=== PATIENT | female | born 1980 | race Caucasian/White ===

== ENCOUNTER 2019-04-17 10:57 | Emergency (ER) | payer BC ==
[2019-04-17 11:56] LABS: #Eosinphils 0.1 thou/uL (0.0-0.7); #Lymphocytes 1.9 thou/uL (1.20-3.40); #Monocytes 0.4 thou/uL (0.11-0.59); #Neutrophils 3.6 thou/uL (1.40-6.50); %Basophils 0.6 % (0.0-1.0); %Eosinophils 1.3 % (0.0-10.0); %Lymphocytes 30.9 % (21.0-51.0); %Monocytes 6.8 % (0.0-10.0); %Neutrophils 60.3 % (42.0-75.0); Hemoglobin 8.9 g/dL (12.0-16.0); Mean Corpuscular HGB CONC 31.9 g/dL (32.0-36.0); Mean Corpuscular Hemoglobin 28.9 pg (27.0-31.0); Mean Corpuscular Volume 90.5 fL (78.0-98.0); Mean Platelet Volume 8.2 fL (7.4-10.4); Platelet Count 277 thou/uL (130-400); RBC Distribution Width 11.7 % (11.5-14.5); Red Blood Cell (RBC) Count 3.07 mill/uL (4.20-5.40)
[2019-04-17 12:02] LABS: BHCG - Serum Negative (NEGATIVE); Pregs Control Background? CLEAR/WHITE (CLR/WHITE); Pregs Control Bar Appear? YES (CONTROL BAR)
[2019-04-17 12:14] LABS: Bilirubin Negative (Negative); Blood, Urine Negative (Negative); Clarity Clear (Clear); Glucose, Urine (Dipstick) Normal (Negative); Leukocyte Negative Leu/uL (Negative); Nitrite Negative (Negative); Protein, Urine (Dipstick) Negative (Neg-Trace); Urobilinogen Normal mg/dL (Less than 2)
[2019-04-17 12:16] LABS: ALT (SGPT) 17 U/L (8-55); AST (SGOT) 16 U/L (5-34); Alkaline Phosphatase 55 U/L (40-110); Anion Gap 10 mmol/L (10-20); BUN (Urea Nitrogen) 12 mg/dL (7.0-18.7); Bilirubin, Total 0.2 mg/dL (0.2-1.2); Calc. Creatinine Clearance 0 mL/min (70-130); Calcium 8.5 mg/dL (7.8-10.44); Carbon Dioxide 24 mmol/L (22-29); Chloride 106 mmol/L (98-107); Estimated GFR-MDRD 81; Globulin 3.3 g/dL (2.4-3.5); Glucose 89 mg/dL (70-105); Potassium 3.9 mmol/L (3.5-5.1); Protein, Total 7.3 g/dL (6.0-8.3); Sodium 136 mmol/L (136-145)
--- NOTE | 2019-04-17 12:40 | ULT ---
US Pelvic Transvag W Doppler HISTORY: Vaginal bleeding since 03/04/2019 COMPARISON: None. FINDINGS: The uterus measures 9.4 x 5.9 x 6.8 cm. There are 2 masses in the uterus consistent with fibroids kelley suring 3.2 and 1.2 cm respectively. The endometrium measures 5 mm in thickness. No endometrial fluid is seen. The right ovary measures 4.7 x 3.3 x 4.2 cm in the left ovary measures 3.3 x 1.8 x 2.6 cm. Flow is de monstrated to both ovaries. There is a 4.2 x 4.7 x 4.1 cm cystic mass arising from the right ovary. There is a small amount of free fluid in the cul-de-sac. Nabothian cysts are noted in the cervix. IMPRESSION: 1. Uterine fibroids 2. Right ovarian cyst measuring 4.2 x 4.7 x 4.1 cm. RECOMMENDATION: Follow-up exam is recommended in 8-10 weeks.
== END 2019-04-17 13:30 | disposition home or self-care (01) ==
LOC: ERS 10:57
DX: N93.8 Other specified abnormal uterine and vaginal bleeding (principal); F41.9 Anxiety disorder, unspecified; Z79.899 Other long term (current) drug therapy
CPT/HCPCS: 36415; 76856; 80053; 81003; 84703; 85025